=== PATIENT | male | born 1965 | race Caucasian/White ===

== ENCOUNTER 2018-12-07 14:49 | Emergency (ER) | payer SELFPAY ==
[~2018-12-07] VITALS: Ht 185.4 cm; Wt 107.4 kg
[2018-12-07 14:58] VITALS: BP 125/78
[2018-12-07] MEDS ORDERED: HYDROcodone/APAP 5/325 TABLET ONE (15:19)
[2018-12-07] MEDS ORDERED: HYDROcodone/APAP 5/325 TABLET PO ONE (15:30)
== END 2018-12-07 15:27 | disposition home or self-care (01) ==
LOC: ED 15:25
DX: K02.9 Dental caries, unspecified (principal); F17.200 Nicotine dependence, unspecified, uncomplicated
CPT/HCPCS: 99283

== ENCOUNTER 2019-02-18 07:55 | Emergency (ER) | payer MEDICAID ==
[~2019-02-18] VITALS: Ht 185.4 cm; Wt 107.1 kg
[2019-02-18 09:31] LABS: BASOPHILS # (AUTO) 0.06 x10^3/uL (0-0.1); BASOPHILS % (AUTO) 1 % (0-1); EOSINOPHILS # (AUTO) 0.21 x10^3/uL (0-0.4); EOSINOPHILS % (AUTO) 2 % (1-7); LYMPHOCYTES # (AUTO) 1.06 x10^3/uL (1-3.4); LYMPHOCYTES % (AUTO) 12 % (22-44); MD NO; MEAN CORPUSCULAR HEMOGLOBIN 33.3 pg (27.5-34.5); MEAN CORPUSCULAR VOLUME 97.9 fL (81-97); MEAN PLATELET VOLUME 8.4 fL (7.4-10.4); MONOCYTES # (AUTO) 0.98 x10^3/uL (0.2-0.8); MONOCYTES % (AUTO) 11 % (2-9); NEUTROPHILS # (AUTO) 6.46 x10^3/uL (1.8-6.8); NEUTROPHILS % (AUTO) 74 % (42-75); PLATELET COUNT 185 x10^3/uL (130-400); RED BLOOD COUNT 4.94 x10^6/uL (4.38-5.82); RED CELL DISTRIBUTION WIDTH 12.8 % (9.4-14.8)
[2019-02-18 09:42] LABS: ANION GAP 3 mmol/L (5-15); CALCIUM 9.2 mg/dL (8.5-10.1); CHLORIDE 110 mmol/L (98-107)
[2019-02-18 09:46] LABS: ALANINE AMINOTRANSFERASE 25 U/L (12-78); ALKALINE PHOSPHATASE 62 U/L (45-117); BILIRUBIN,TOTAL 0.6 mg/dL (0.2-1.0); TOTAL PROTEIN 7.4 g/dL (6.4-8.2)
--- NOTE | 2019-02-18 09:56 | NUR ---
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
[2019-02-18 10:40] LABS: CULTURE INDICATED? NO; MICROSCOPIC NOT IND
[2019-02-18 12:10] VITALS: BP 148/98
--- NOTE | 2019-02-18 12:10 | NUR ---
pt discharged with discharge instructions, rxs and follow ups. pt a&ox4. pt up ambulatory and stable on feet.
== END 2019-02-18 12:12 | disposition home or self-care (01) ==
LOC: ED 11:23
DX: G89.11 Acute pain due to trauma (principal); M54.5 Low back pain; M25.562 Pain in left knee; W01.0XXA Fall on same level from slipping, tripping and stumbling without subsequent striking against object, initial encounter; Y93.01 Activity, walking, marching and hiking; Y92.410 Unspecified street and highway as the place of occurrence of the external cause; Y99.8 Other external cause status
CPT/HCPCS: 36415; 74176; 80053; 81003; 85025; 99284

== ENCOUNTER 2019-02-26 23:32 | Emergency (ER) | payer MEDICAID ==
[~2019-02-26] VITALS: Ht 185.4 cm; Wt 105.0 kg
[2019-02-26 23:35] VITALS: BP 108/70
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
[2019-02-27] MEDS ORDERED: ACETAMINOPHEN 500 MG TABLET PO ONE
[2019-02-27] MEDS ORDERED: ACETAMINOPHEN 500 MG TABLET ONE (00:04)
--- NOTE | 2019-02-27 00:18 | NUR ---
HELICOPTER PILOT AT PT'S BEDSIDE TO APPLY MIRELLA WRAP TO PT'S LEFT KNEE, ICE PACK PROVIDED.
--- NOTE | 2019-02-27 00:28 | NUR ---
PT A&OX4, ABLE TO AMBULATE IN ROOM WITHOUT DIFFICULTY, OFFERED PT CANE AND HE REFUSED STATED " I'M OK, I CAN WALK WITHOUT ONE"
== END 2019-02-27 00:49 | disposition home or self-care (01) ==
LOC: ED 02-27 00:42
DX: S83.92XA Sprain of unspecified site of left knee, initial encounter (principal); F10.129 Alcohol abuse with intoxication, unspecified; M17.12 Unilateral primary osteoarthritis, left knee; X50.1XXA Overexertion from prolonged static or awkward postures, initial encounter; Y93.89 Activity, other specified; Y92.89 Other specified places as the place of occurrence of the external cause; Y99.8 Other external cause status
CPT/HCPCS: 99283

== ENCOUNTER 2020-01-13 05:17 | Emergency (ER) | payer MEDICAID ==
[~2020-01-13] VITALS: Ht 182.9 cm; Wt 108.0 kg
[2020-01-13 05:19] VITALS: BP 150/88
[2020-01-13] MEDS ORDERED: KETOROLAC 30 MG/1 ML IM ONE (06:00)
[2020-01-13] MEDS ORDERED: ALBUTEROL/IPRATROPIUM 2.5MG/0.5MG, 3 ML NPPB SCH (06:00)
[2020-01-13] MEDS ORDERED: KETOROLAC 30 MG/1 ML ONE (06:05)
[2020-01-13 06:26] LABS: RAPID INFLUENZA A Negative (Negative); RAPID INFLUENZA B Negative (Negative)
--- NOTE | 2020-01-13 06:56 | NUR ---
report received from john mario.
--- NOTE | 2020-01-13 07:41 | NUR ---
Patient given discharge instructions and they have confirmed that they understand the instructions.
== END 2020-01-13 07:42 | disposition home or self-care (01) ==
LOC: ED 07:20
DX: J00 Acute nasopharyngitis [common cold] (principal); J45.909 Unspecified asthma, uncomplicated; F17.210 Nicotine dependence, cigarettes, uncomplicated
CPT/HCPCS: 71046; 87400; 96372; 99284; J1885

== ENCOUNTER 2020-01-31 00:51 | Emergency (ER) | payer MEDICAID ==
[2020-01-31] MEDS ORDERED: HYDROcodone/APAP 5/325 TABLET PO ONE (01:00)
[2020-01-31] MEDS ORDERED: HYDROcodone/APAP 5/325 TABLET ONE (01:09)
--- NOTE | 2020-01-31 04:33 | NUR ---
Please see continued charting on paper chart.
== END 2020-01-31 04:34 ==
LOC: ED 00:53
DX: K04.7 Periapical abscess without sinus (principal); K02.9 Dental caries, unspecified; J45.909 Unspecified asthma, uncomplicated
CPT/HCPCS: 99283

== ENCOUNTER 2020-02-06 13:05 | Emergency (ER) | payer MEDICAID ==
[~2020-02-06] VITALS: Ht 182.9 cm; Wt 109.8 kg
[2020-02-06 13:07] VITALS: BP 160/97
[2020-02-06] MEDS ORDERED: DIPH,PERTUSS(ACELL),TET VAC/PF 0.5 ML IM-VACC ONE ×2 (13:30→13:45)
--- NOTE | 2020-02-06 13:49 | NUR ---
PT MEDICATED PER MAR
== END 2020-02-06 14:02 | disposition home or self-care (01) ==
LOC: ED 13:49
DX: S62.624A Displaced fracture of middle phalanx of right ring finger, initial encounter for closed fracture (principal); L01.01 Non-bullous impetigo; J45.909 Unspecified asthma, uncomplicated; Y08.89XA Assault by other specified means, initial encounter; Y93.89 Activity, other specified; Y92.009 Unspecified place in unspecified non-institutional (private) residence as the place of occurrence of the external cause; Y99.8 Other external cause status
CPT/HCPCS: 29130; 90471; 90715

== ENCOUNTER 2020-07-09 21:36 | Emergency (ER) | payer MEDICAID ==
[~2020-07-09] VITALS: Ht 185.4 cm; Wt 115.0 kg
[2020-07-09 21:38] VITALS: BP 147/92
--- NOTE | 2020-07-09 21:58 | NUR ---
PT DESATURATED TO 88% ON RAPLACED ON 2L NC. PT TRANSPORTED TO CT.
[2020-07-09] MEDS ORDERED: LIDOCAINE-MPF 1%, 5ML ONE (22:41)
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
[2020-07-09] MEDS ORDERED: LIDOCAINE-MPF 1%, 5ML INFIL ONE (23:00)
--- NOTE | 2020-07-09 23:04 | NUR ---
REPORT FROM DIMA ELLIOTT. PT CARE RESPONSIBILITIES ASSUMED.
[2020-07-10] MEDS ORDERED: NEOSPORIN OINT. PKT 1 PACKET ONE (00:23)
== END 2020-07-10 00:53 | disposition home or self-care (01) ==
LOC: ED 07-10 00:10
DX: S02.32XA Fracture of orbital floor, left side, initial encounter for closed fracture (principal); S01.81XA Laceration without foreign body of other part of head, initial encounter; J45.909 Unspecified asthma, uncomplicated; Y08.89XA Assault by other specified means, initial encounter; Y93.89 Activity, other specified; Y92.488 Other paved roadways as the place of occurrence of the external cause; Y99.8 Other external cause status
CPT/HCPCS: 70450; 70486; 99285

== ENCOUNTER 2020-07-12 12:11 | Emergency (ER) | payer MEDICAID ==
[~2020-07-12] VITALS: Ht 185.4 cm; Wt 113.0 kg
[2020-07-12 12:15] VITALS: BP 150/107
[2020-07-12] MEDS ORDERED: OXYcodone/APAP 5/325MG TABLET PO ONE (13:30)
[2020-07-12] MEDS ORDERED: OXYcodone/APAP 5/325MG TABLET ONE ×2 (13:36→15:36)
[2020-07-12] MEDS ORDERED: HYDROmorphone 1 MG/ML, 1ML INJ ONE (13:43)
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
[2020-07-12] MEDS ORDERED: ONDANSETRON ODT 4 MG PO ONE (14:00)
[2020-07-12] MEDS ORDERED: HYDROmorphone 2 MG/ML, 1ML IM PRN (14:00)
--- NOTE | 2020-07-12 14:03 | NUR ---
MEDICATED NOTED ON MAR FOR PAIN. TECH TAKING PT BY W/C FOR [facility]
--- NOTE | 2020-07-12 14:44 | NUR ---
FACE AND HEAD PAIN IMPROVED SINCE MEDICATED. CONTINUE TO MONITOR
--- NOTE | 2020-07-12 15:15 | NUR ---
OPHTHOMOLOGIST EXAMINING PT
--- NOTE | 2020-07-12 15:31 | NUR ---
OPHTHOMOLOGIST REMAINS AT BEDSIDE. REPORT TO MARIAA CH
--- NOTE | 2020-07-12 15:31 | NUR ---
RECEIVED REPORT FROM SCOTT CH. ASSUMING CARE AT THIS TIME. OPTHOMOLOGY AT BEDSIDE.
[2020-07-12] MEDS ORDERED: ONDANSETRON ODT 4 MG ONE (15:35)
--- NOTE | 2020-07-12 17:16 | NUR ---
FIRST CONTACT WITH PT: Patient/Caregiver given discharge instructions and they have confirmed that they understand the instructions. Patient ambulatory with steady gait. PT LEFT WITH ALL PERSONAL BELONGINGS.
== END 2020-07-12 17:18 | disposition home or self-care (01) ==
LOC: ED 15:37
DX: S02.32XA Fracture of orbital floor, left side, initial encounter for closed fracture (principal); H43.12 Vitreous hemorrhage, left eye; G31.9 Degenerative disease of nervous system, unspecified; J45.909 Unspecified asthma, uncomplicated; Y08.89XA Assault by other specified means, initial encounter; Y93.89 Activity, other specified; Y92.488 Other paved roadways as the place of occurrence of the external cause; Y99.8 Other external cause status
CPT/HCPCS: 70450; 70486; 96372; 99285; J1170

== ENCOUNTER 2020-07-13 16:02 | Emergency (ER) | payer MEDICAID ==
[~2020-07-13] VITALS: Ht 185.4 cm; Wt 113.8 kg
[2020-07-13 16:06] VITALS: BP 116/81
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
[2020-07-13] MEDS ORDERED: ONDANSETRON ODT 4 MG ONE (16:21)
[2020-07-13] MEDS ORDERED: ONDANSETRON ODT 4 MG PO ONE (16:30)
--- NOTE | 2020-07-13 17:01 | NUR ---
PT GIVEN MEAL TRAY PER ERMD ORDER.
== END 2020-07-13 17:58 | disposition home or self-care (01) ==
LOC: ED 16:48
DX: S02.32XA Fracture of orbital floor, left side, initial encounter for closed fracture (principal); S00.83XA Contusion of other part of head, initial encounter; S00.33XA Contusion of nose, initial encounter; J45.909 Unspecified asthma, uncomplicated; F17.200 Nicotine dependence, unspecified, uncomplicated; X58.XXXA Exposure to other specified factors, initial encounter; Y93.89 Activity, other specified; Y92.488 Other paved roadways as the place of occurrence of the external cause; Y99.8 Other external cause status
CPT/HCPCS: 99283; Q0162

== ENCOUNTER 2020-07-20 08:21 | Emergency (ER) | payer MEDICAID ==
[~2020-07-20] VITALS: Ht 185.4 cm; Wt 113.0 kg
--- NOTE | 2020-07-20 09:41 | NUR ---
PT WITH C-COLLAR IN PLACE.
[2020-07-20] MEDS ORDERED: IBUPROFEN 600 MG TABLET ONE (11:20)
[2020-07-20 11:27] VITALS: BP 138/95
[2020-07-20] MEDS ORDERED: IBUPROFEN 600 MG TABLET PO ONE (11:30)
== END 2020-07-20 11:29 | disposition home or self-care (01) ==
LOC: ED 09:34
DX: S16.1XXA Strain of muscle, fascia and tendon at neck level, initial encounter (principal); G89.11 Acute pain due to trauma; M54.6 Pain in thoracic spine; Z48.02 Encounter for removal of sutures; X58.XXXA Exposure to other specified factors, initial encounter; Y93.89 Activity, other specified; Y92.89 Other specified places as the place of occurrence of the external cause; Y99.8 Other external cause status
CPT/HCPCS: 72072; 72125; 99284

== ENCOUNTER 2021-04-08 16:22 | Emergency (ER) | payer MEDICAID ==
[~2021-04-08] VITALS: Ht 185.4 cm; Wt 120.0 kg
--- NOTE | 2021-04-08 16:30 | NUR ---
PT FITZ. PER EMS PT HAD HAD ABD PAIN FOR THE LAST MONTH, PT WAS SEEN AT [facility] A WEEK AGO BUT PAIN HAS NOT IMPROVED. PT STATES ONCE HE GETS MEDICATIONS AT THE HOSPITAL HE IS PAIN FREE, BUT PAIN CAME BACK AFTER A DAY OF BEING DISCHARGED FROM [facility]. PT RESTING IN [place] AT THIS TIME, MONITORING IN PLACE, TM.
[2021-04-08] MEDS ORDERED: ONDANSETRON 2MG/ML, 2ML ONE (17:30)
[2021-04-08] MEDS ORDERED: SODIUM CHLORIDE FLUSH 10ML SYR IVF ONE (17:30)
[2021-04-08] MEDS ORDERED: SODIUM CHLORIDE 0.9% 1,000ML IVBOLUS ONE ×2 (17:30→19:30)
[2021-04-08] MEDS ORDERED: ONDANSETRON 2MG/ML, 2ML IVPush ONE (17:30)
[2021-04-08] MEDS ORDERED: MORPHINE SULFATE 4 MG/ML, 1ML ONE ×2 (17:31→21:33)
[2021-04-08] MEDS: MORPHINE SULFATE 4 MG/ML, 1ML IVPush PRN ×2 (17:38→21:47)
[2021-04-08 17:58] LABS: BASOPHILS % (AUTO) 1 % (0-1); EOSINOPHILS % (AUTO) 1 % (1-7); LYMPHOCYTES % (AUTO) 11 % (22-44); MEAN CORPUSCULAR HEMOGLOBIN 35.2 pg (27.5-34.5); MEAN CORPUSCULAR HGB CONC 34.8 g/dL (33.2-36.2); MEAN PLATELET VOLUME 8.1 fL (7.4-10.4); MONOCYTES % (AUTO) 8 % (2-9); NEUTROPHILS % (AUTO) 79 % (42-75); PLATELET COUNT 207 x10^3/uL (130-400); RED BLOOD COUNT 4.24 x10^6/uL (4.38-5.82); RED CELL DISTRIBUTION WIDTH 12.7 % (9.4-14.8)
[2021-04-08 17:59] LABS: MD NO
[2021-04-08 18:08] LABS: ALANINE AMINOTRANSFERASE 32 U/L (12-78); ALBUMIN 4.3 g/dL (3.4-5.0); ANION GAP 6 mmol/L (5-15); CALCIUM 10.6 mg/dL (8.5-10.1); CHLORIDE 105 mmol/L (98-107); CREATININE 0.83 mg/dL (0.7-1.3)
[2021-04-08 18:10] LABS: ALKALINE PHOSPHATASE 66 U/L (45-117); TOTAL PROTEIN 7.5 g/dL (6.4-8.2)
[2021-04-08] MEDS ORDERED: OMNIPAQUE 350 MG/ML, 100ML BOTTLE ONE (20:50)
--- NOTE | 2021-04-08 20:54 | NUR ---
REPORT TO DIMA BENEDICT.
--- NOTE | 2021-04-08 20:55 | NUR ---
REPORT RECIEVED FROM CUCO CH.
[2021-04-08 22:04] LABS: MICROSCOPIC NOT IND
[2021-04-08 22:58] VITALS: BP 120/80
--- NOTE | 2021-04-08 23:03 | NUR ---
Patientr given discharge instructions and they have confirmed that they understand the instructions. Patient ambulatory with steady gait. No questions at time of dischage
== END 2021-04-08 23:04 | disposition home or self-care (01) ==
LOC: ED 18:16
DX: R10.84 Generalized abdominal pain (principal); R11.2 Nausea with vomiting, unspecified; R00.0 Tachycardia, unspecified; J45.909 Unspecified asthma, uncomplicated
CPT/HCPCS: 36415; 74174; 80053; 81003; 83605; 83690; 85025; 96361; 96374; 96375; 96376; 99285; J2270; J2405; J7030; Q9967